=== PATIENT | male | born 1965 | race Two or more races ===

== ENCOUNTER 2023-12-08 13:20 | Emergency (ER) | payer BC, OTHER ==
[~2023-12-08] VITALS: Ht 170.2 cm; Wt 97.2 kg
[2023-12-08] MEDS: KETOROLAC TROMETH 60MG/2ML VIAL IM ONE (14:23)
[2023-12-08] MEDS: BACLOFEN 10 MG TAB PO ONE (14:23)
[2023-12-08] MEDS ORDERED: BACL20TA PO (15:08)
[2023-12-08] MEDS ORDERED: TRAM50TA2 PO (15:08)
[2023-12-08] MEDS ORDERED: NAP500T GT (15:14)
[2023-12-08 15:55] VITALS: BP 142/64; PULSE 64; RESP 16; TEMP 98.1; O2SAT 97
== END 2023-12-08 15:57 | disposition home or self-care (01) ==
LOC: ER 13:20
DX: M54.59 Other low back pain (principal); I10 Essential (primary) hypertension; E78.5 Hyperlipidemia, unspecified; Z98.890 Other specified postprocedural states; Z79.899 Other long term (current) drug therapy
CPT/HCPCS: 72131; 74176; 96372; 99285; J1885